=== PATIENT | female | born 1990 | race Caucasian/White ===

== ENCOUNTER 2020-12-17 08:17 | Outpatient (CLI) | payer BC ==
[2020-12-17] MEDS ORDERED: NONE PER PT (08:46)
[2020-12-17 09:02] LABS: BASOPHILS % (AUTO) 1 % (0-1); EOSINOPHILS % (AUTO) 2 % (1-7); LYMPHOCYTES % (AUTO) 33 % (22-44); MEAN CORPUSCULAR HEMOGLOBIN 26.9 pg (27.0-34.8); MEAN CORPUSCULAR HGB CONC 34.6 g/dL (32.4-35.8); MEAN PLATELET VOLUME 7.2 fL (7.4-10.4); MONOCYTES % (AUTO) 8 % (2-9); NEUTROPHILS % (AUTO) 57 % (42-75); PLATELET COUNT 384 x10^3/uL (130-400); RED BLOOD COUNT 5.64 x10^6/uL (3.82-5.3); RED CELL DISTRIBUTION WIDTH 12.8 % (9.6-15.2)
[2020-12-17 09:06] LABS: ANION GAP 7 mmol/L (5-15); CALCIUM 9.7 mg/dL (8.5-10.1); CHLORIDE 107 mmol/L (98-107); CREATININE 0.53 mg/dL (0.55-1.02)
[2020-12-17 09:08] LABS: INTERNATIONAL NORMALIZED RATIO 1.02 (0.93-1.1); PROTHROMBIN TIME 10.9 Seconds (9.6-11.5)
== END 2020-12-17 23:59 | disposition home or self-care (01) ==
LOC: STAR 08:17
PROVIDERS: ATTEND Neurological Surgery
DX: Z01.818 Encounter for other preprocedural examination (principal); G57.31 Lesion of lateral popliteal nerve, right lower limb
CPT/HCPCS: 36415; 80048; 85025; 85610; 85730; 93005

== ENCOUNTER 2020-12-22 05:54 | Day surgery (SDC) | payer BC ==
[~2020-12-22] VITALS: Ht 172.7 cm; Wt 82.4 kg
[~2020-12-22 05:54] MED LIST: NONE PER PT
[2020-12-22 06:46] VITALS: BP 115/73
[2020-12-22] MEDS ORDERED: CEFAZOLIN 1,000 MG ONE ×2 (06:47→08:07)
[2020-12-22] MEDS ORDERED: GENTAMICIN 80 MG/2 ML ONE (06:47)
[2020-12-22] MEDS ORDERED: BUPIVACAINE/PF 0.5% ONE (06:47)
[2020-12-22] MEDS ORDERED: EPINEPHRINE 1 MG/ML, 1ML ONE (06:47)
[2020-12-22] MEDS ORDERED: LIDOCAINE-MPF 1%, 2ML ONE (06:52)
[2020-12-22] MEDS ORDERED: CHLORHEXIDINE 15 ML UDC ONE (06:52)
[2020-12-22] MEDS ORDERED: CHLORHEXIDINE 15 ML UDC PO ONE (07:00)
[2020-12-22] MEDS ORDERED: LACTATED RINGERS 1,000 ML IV SCH (07:00)
[2020-12-22] MEDS ORDERED: LIDOCAINE-MPF 1%, 2ML INFIL ONE (07:00)
[2020-12-22] MEDS ORDERED: FENTANYL PF 100 MCG/2ML ONE (07:16)
[2020-12-22] MEDS ORDERED: MIDAZOLAM 1 MG/ML, 2ML ONE (07:16)
[2020-12-22 07:29] LABS: HCG UR SG 1.022 (1.003-1.030)
[2020-12-22] MEDS ORDERED: OXYcodone 5 MG/5 ML ORAL.SOL UDC PO PRN (07:30)
[2020-12-22] MEDS ORDERED: MIDAZOLAM 1 MG/ML, 2ML IV PRN (07:30)
[2020-12-22] MEDS ORDERED: SCOPOLAMINE 1MG PATCH TD ONE (07:30)
[2020-12-22] MEDS ORDERED: ACETAMINOPHEN 325 MG TABLET PO PRN (07:30)
[2020-12-22] MEDS ORDERED: HYDROmorphone 1 MG/ML, 1ML INJ IVPush PRN (07:30)
[2020-12-22] MEDS ORDERED: ALBUTEROL SULFATE 2.5 MG/3 ML NPPB PRN (07:30)
[2020-12-22] MEDS ORDERED: MEPERIDINE/PF 25MG/0.5ML IVPush PRN (07:30)
[2020-12-22] MEDS ORDERED: LABETALOL 5MG/ML, 20ML IV PRN (07:30)
[2020-12-22] MEDS ORDERED: FENTANYL PF 100 MCG/2ML IV PRN (07:30)
[2020-12-22] MEDS ORDERED: PROMETHAZINE 25 MG/ML, 1ML IVPush PRN (07:30)
[2020-12-22] MEDS ORDERED: PROPOFOL 50 ML ONE ×2 (07:33→08:09)
[2020-12-22] MEDS ORDERED: PROPOFOL 10 MG/ML, 20ML ONE (08:07)
[2020-12-22] MEDS ORDERED: LIDOCAINE-MPF 2% ,5ML ONE (08:07)
[2020-12-22] MEDS ORDERED: ONDANSETRON 2MG/ML, 2ML ONE (08:07)
[2020-12-22] MEDS ORDERED: DEXAMETHASONE 4 MG/ML, 1ML ONE (08:07)
== END 2020-12-22 10:32 | disposition home or self-care (01) ==
LOC: OUT 05:54
PROVIDERS: ATTEND Neurological Surgery
DX: G57.31 Lesion of lateral popliteal nerve, right lower limb (principal); M21.371 Foot drop, right foot; G43.909 Migraine, unspecified, not intractable, without status migrainosus; Z79.899 Other long term (current) drug therapy
CPT/HCPCS: 64708; 81025; J0171; J0690; J1100; J1580; J2250; J2405; J2704; J3010; J7120